=== PATIENT | female | born 1955 | race American Indian/Alaskan Native ===

== ENCOUNTER 2018-11-14 09:25 | Emergency (ER) | payer OTHER ==
[2018-11-14 09:33] VITALS: BP 154/85
--- NOTE | 2018-11-14 10:06 | Emergency Department Report ---
ED General Adult HPI - General Chief complaint: Headache Stated complaint: HEAD/BACK PAIN Time Seen by Provider: 11/14/18 09:44 Source: patient Mode of arrival: Ambulatory Limitations: No Limitations - History of Present Illness Initial comments: Mrs. Robbins is a healthy 63 yo female who presents with headache, upper back swelling, chest pain, nerve pain in her arms and legs Has had difficulty concentrating. Mild symptoms. Intermittent. Does not appear to be a pattern or inciting factor. 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 She has a PCP. FUll p hysical performed last summer. Has had preventive care including colonoscopy and mammogram. Mild intermittent nondescript chest pain last seconds. migrating headache, right, leg, posterior. PCP Dr. Rao -: Gradual, week(s) (1) Location: head, chest Severity scale (0 -10): 6 Consistency: intermittent Improves with: none Worsens with: none Associated Symptoms: chest pain, headaches - Related Data Home Medications Medication Instructions Recorded Confirmed Last Taken No Known Home Medications [No 07/04/14 07/04/14 Unknown Reported Home Medications] Allergies Allergy/AdvReac Type Severity Reaction Status Date / Time No Known Allergies Allergy Verified 11/14/18 09:27 ED Review of Systems ROS: Stated complaint: HEAD/BACK PAIN Other details as noted in HPI Comment: All other systems reviewed and negative Constitutional: denies: fever Respiratory: denies: cough Cardiovascular: chest pain Neurological: headache ED Past Medical Hx - Past Medical History Previous Medical History?: No - Surgical History Past Surgical History?: Yes Additional Surgical History: fibroids removed - Social History Smoking Status: Never Smoker Substance Use Type: None - Medications Home Medications: Home Medications Medication Instructions Recorded Confirmed Last Taken Type No Known Home Medications [No 07/04/14 07/04/14 Unknown History Reported Home Medications] ED Physical Exam - General Limitations: No Limitations General appearance: alert, in no apparent distress - Head Head exam: Present: atraumatic, normocephalic - Eye Eye exam: Present: normal appearance - ENT ENT exam: Present: mucous membranes moist - Neck Neck exam: Present: normal inspection - Respiratory Respiratory exam: Present: normal lung sounds bilaterally. Absent: respiratory distress, wheezes, rales, rhonchi - Cardiovascular Cardiovascular Exam: Present: regular rate, normal rhythm, normal heart sounds. Absent: systolic murmur, diastolic murmur, rubs, gallop - GI/Abdominal GI/Abdominal exam: Present: soft, normal bowel sounds. Absent: distended, tenderness, guarding, rebound - Extremities Exam Extremities exam: Present: normal inspection - Back Exam Back exam: Present: normal inspection - Neurological Exam Neurological exam: Present: alert, oriented X3 - Psychiatric Psychiatric exam: Present: normal affect, normal mood - Skin Skin exam: Present: warm, dry, intact, normal color, other (lipoma mid upper back just posterior to neck region). Absent: rash ED Course Vital Signs 11/14/18 09:31 Temperature 98.6 F Pulse Rate 67 Respiratory 18 Rate Blood Pressure 154/85 O2 Sat by Pulse 100 Oximetry ED Medical Decision Making - Lab Data Result diagrams: 11/14/18 10:29 11/14/18 10:26 Laboratory Results - last 24 hr 11/14/18 11/14/18 10:26 10:29 WBC 4.5 RBC 4.69 Hgb 13.2 Hct 40.1 MCV 85 MCH 28 MCHC 33 RDW 14.4 Plt Count 263 Seg Neutrophils % [employer] Sodium 142 Potassium 4.1 Chloride 102.8 Carbon Dioxide 27 Anion Gap 16 BUN 10 Creatinine 0.6 L Estimated GFR > 60 BUN/Creatinine Ratio 17 Glucose 110 H Calcium 8.9 Troponin T < 0.010 - EKG Data -: EKG Interpreted by Me - EKG Data 11/14/18 11:13 EKG obtained 1048 Sinus bradycardia rate 50 beats a minute normal axis normal interval diffuse T- wave inversions - Radiology Data Radiology results: report reviewed CT head no acute process according to radiology report Chest x-ray: No acute process according to radiology report - Medical Decision Making 1. migrating headache without neurological deficit: no indication of severe headache cause such as CVA, meningitis, temporal arteritis, SAH, will need BP monitoring by PCP 2. chest pain, atypical for ACS, Heart Score 2, has been admitted by cardiology for chest pain in past, according to EMR review, no indication of ischemic heart disease, normal echo, normal V/Q scan, referred to same cardiology group for urgent f/u 3. pain upper back lipoma vs sebaceous cyst, Mrs. Robbins given verbal education With a host of concerns which do not appear related, I explained that her PCP wo uld be very helpful. However, emergency medical condition was ruled out during this encounter. Critical care attestation.: If time is entered above; I have spent that time in minutes in the direct care of this critically ill patient, excluding procedure time. ED Disposition Clinical Impression: Headache, Chest pain, Elevated blood pressure reading, Lipoma Disposition: TO HOME OR SELFCARE Is pt being admited?: No Does the pt Need Aspirin: No Condition: Stable Instructions: Chest Pain (ED), Acute Headache (ED), Lipoma (ED) Additional Instructions: Your blood pressure is 154/85. Please see your primary doctor this week. Referrals: DOMINIK RAO MD [Primary Care Provider] - [facility] SVETLANA GORMAN MD [Staff Physician] - [facility] Forms: Work/School Release Form(ED)
[2018-11-14 10:40] LABS: Hematocrit 40.1 % (30.3-42.9); Hemoglobin 13.2 gm/dl (10.1-14.3); Mean Corpuscular HGB Conc 33 % (30-34); Mean Corpuscular Volume 85 fl (79-97); Platelet Count 263 K/mm3 (140-440); Red Blood Count 4.69 M/mm3 (3.65-5.03); Red Cell Distribution Width 14.4 % (13.2-15.2)
[2018-11-14 11:01] LABS: BUN/Creatinine Ratio 17; Blood Urea Nitrogen 10 mg/dL (7-17); Calcium 8.9 mg/dL (8.4-10.2); Hemolysis Index 14
--- NOTE | 2018-11-14 11:05 | Cat Scan Report ---
PROCEDURE: CT HEAD/BRAIN WO CON TECHNIQUE: Multiple continuous axial images were obtained from the skull base to the vertex without administration of IV contrast. HISTORY: headache COMPARISONS: None. FINDINGS: There is no parenchymal hemorrhage or extra-axial fluid collection. There is no mass or mass effect. There is no acute territorial infarct. The ventricles are midline. The subarachnoid spaces and basila r cisterns are clear. There is no skull fracture. The paranasal sinuses and mastoid air cells are terrence ar. IMPRESSION: No acute intracranial abnormality. This document is electronically signed by Eugenia Lopez MD., November 14 2018 11:03:09 AM ET
--- NOTE | 2018-11-14 11:12 | XRay Report ---
EXAM: XR CHEST ROUTINE 2V HISTORY: Chest Pain TECHNIQUE: PA and lateral chest x-ray dated 11/14/2018 at 10:15 AM. COMPARISON: None available. FINDINGS: The heart size and mediastinum are within normal limits. The lung brown and costophrenic angles are clear. There is no acute parenchymal infiltrate, pleural effusion, or pneumothorax seen. The visua lized bony structures are within normal limits. IMPRESSION: 1. No evidence for acute cardiopulmonary disease seen. This document is electronically signed by Jere Arredondo MD., November 14 2018 11:10:50 AM ET
[2018-11-14 11:31] LABS: Basophils % (Manual) 0 % (0.0-1.8); Giant Platelets Few; Platelet Estimate Consistent w Auto; RBC Morphology Normal; Total Cells Counted 100
== END 2018-11-14 11:21 | disposition home or self-care (01) ==
LOC: ED 09:25
DX: G43.909 Migraine, unspecified, not intractable, without status migrainosus (principal); R07.89 Other chest pain; I10 Essential (primary) hypertension; D17.9 Benign lipomatous neoplasm, unspecified
CPT/HCPCS: 36415; 70450; 71046; 80048; 84484; 85007; 85025; 93005; 93010; 99284

== ENCOUNTER 2020-10-07 08:23 | Emergency (ER) | payer OTHER ==
[2020-10-07] MEDS ORDERED: ASPIRIN 325 MG TAB PO ONE (08:49)
--- NOTE | 2020-10-07 08:49 | Event Note ---
ED Screening Note Date of service: 10/07/20 Time: 08:45 ED Screening Note: 65 year old female presents to ED with c/o diffuse anterior chest pain. onset x 1 mth. She states its been intermittent in nature and sharp. she states pain is also in her upper back and left arm. She states she had treadmill stress test about 1 mth ago. She states she "thinks" it was abnormal. She states she is suppose to have heart cath ( but not quite sure). Her Cream Tester is Dr Clement. This initial assessment/diagnostic orders/clinical plan/treatment(s) is/are subject to change based on patients health status, clinical progression and re- assessment by fellow clinical providers in the ED. Further treatment and workup at subsequent clinical providers discretion. Patient/guardian urged not to elope from the ED as their condition may be serious if not clinically assessed and managed. Initial orders include: Chest pain order set
[2020-10-07 09:11] LABS: Basophils % (Auto) 0.2 % (0.0-1.8); Eosinophils # (Auto) 0.1 K/mm3 (0.0-0.4); Eosinophils % (Auto) 0.9 % (0.0-4.3); Hematocrit 40.6 % (30.3-42.9); Hemoglobin 13.5 gm/dl (10.1-14.3); Lymphocytes # (Auto) 2.1 K/mm3 (1.2-5.4); Lymphocytes % (Auto) 33.4 % (13.4-35.0); Mean Corpuscular HGB Conc 33 % (30-34); Mean Corpuscular Volume 86 fl (79-97); Monocytes # (Auto) 0.5 K/mm3 (0.0-0.8); Monocytes % (Auto) 7.1 % (0.0-7.3); Platelet Count 263 K/mm3 (140-440); Red Blood Count 4.71 M/mm3 (3.65-5.03); Red Cell Distribution Width 14.3 % (13.2-15.2)
[2020-10-07 09:35] LABS: Alanine Aminotransferase 10 units/L (7-56); Albumin 4.4 g/dL (3.9-5); BUN/Creatinine Ratio 13; Blood Urea Nitrogen 9 mg/dL (7-17); Calcium 9.5 mg/dL (8.4-10.2); Hemolysis Index 17
--- NOTE | 2020-10-07 10:17 | Emergency Department Report ---
ED Chest Pain HPI - General Chief Complaint: Chest Pain Stated Complaint: CHEST FEELS HEAVY Time Seen by Provider: 10/07/20 10:02 Source: patient Mode of arrival: Ambulatory Limitations: No Limitations - History of Present Illness Initial Comments: This is a 65-year-old female who presents to the emergency department with a complaint of a 1 month history of intermittent left-sided chest and shoulder pains. At the time of my examination the patient is asymptomatic. She says that the pain will come on sometimes when she is laying flat or laying on her left side, and sometimes with exertion. She denies any shortness of breath, back pain, nausea, vomiting or diaphoresis. She has not taken anything for her symptoms prior to presentation. She denies any past medical history. She denies any tobacco or illicit drug use. No recent travel or sick contacts at home. She denies any family history of early heart attack or cardiac disease. She has a primary care physician, Dr. Dominik Wall, and follows with a flat cutter in [place]. - Related Data Home Medications Medication Instructions Recorded Confirmed Last Taken No Known Home Medications [No 07/04/14 07/04/14 Unknown Reported Home Medications] Allergies Allergy/AdvReac Type Severity Reaction Status Date / Time No Known Allergies Allergy Verified 10/07/20 08:24 Heart Score - HEART Score History: Slightly suspicious EKG: Non-specific Age: 45-65 Risk factors: No known risk factors Troponin: < normal limit HEART Score: 2 - Critical Actions Critical Actions: 0-3 pts:0.9-1.7%risk of adverse cardiac event.Candidate for discharge ED Review of Systems ROS: Stated complaint: CHEST FEELS HEAVY Other details as noted in HPI Comment: All other systems reviewed and negative Constitutional: denies: chills, fever Eyes: denies: eye pain, vision change ENT: denies: ear pain, throat pain Respiratory: denies: cough, shortness of breath Cardiovascular: chest pain. denies: palpitations Gastrointestinal: denies: abdominal pain, vomiting Genitourinary: denies: dysuria, discharge Musculoskeletal: arthralgia. denies: back pain Skin: denies: rash, lesions Neurological: denies: headache, weakness ED Past Medical Hx - Past Medical History Previous Medical History?: No - Surgical History Additional Surgical History: fibroids removed - Social History Smoking Status: Never Smoker Substance Use Type: None - Medications Home Medications: Home Medications Medication Instructions Recorded Confirmed Last Taken Type No Known Home Medications [No 07/04/14 07/04/14 Unknown History Reported Home Medications] ED Physical Exam - General Limitations: No Limitations - Other Other exam information: GENERAL: The patient is well-developed well-nourished. HENT: Normocephalic. Atraumatic. Patient has moist mucous membranes. EYES: Extraocular motions are intact. NECK: Supple. Trachea is midline. CHEST/LUNGS: Clear to auscultation. There is no respiratory distress noted. HEART/CARDIOVASCULAR: Regular. There is no tachycardia. There is no murmur. ABDOMEN: Abdomen is soft, nontender. Patient has normal bowel sounds. SKIN: Skin is warm and dry. NEURO: The patient is awake, alert, and oriented. The patient is cooperative. Normal speech. MUSCULOSKELETAL: There is no tenderness or deformity. There is no limitation range of motion. ED Course Vital Signs 10/07/20 10/07/20 10/07/20 08:24 09:22 09:31 Temperature 98.3 F Pulse Rate 84 72 82 Respiratory 20 22 19 Rate Blood Pressure 153/82 141/74 O2 Sat by Pulse 98 Oximetry 10/07/20 10/07/20 10/07/20 10:00 10:01 10:31 Temperature Pulse Rate 63 60 Respiratory 19 20 Rate Blood Pressure 137/72 128/69 O2 Sat by Pulse 99 Oximetry 10/07/20 10/07/20 10/07/20 11:01 11:15 11:31 Temperature Pulse Rate 57 L 59 L Respiratory 13 17 Rate Blood Pressure 131/71 129/64 O2 Sat by Pulse 97 98 Oximetry 10/07/20 12:01 Temperature Pulse Rate 58 L Respiratory 23 Rate Blood Pressure 141/74 O2 Sat by Pulse 98 Oximetry MILENA score - Milena Score Age > 65: (0) No Aspirin use within the Past 7 Days: (0) No 3 or more CAD Risk Factors: (0) No 2 or more Angina events in past 24 hrs: (1) Yes Known CAD with more than 50% Stenosis: (0) No Elevated Cardiac Markers: (0) No ST Deviation Greater than 0.5mm: (0) No MILENA Score: 1 ED Medical Decision Making - Lab Data Result diagrams: 10/07/20 08:51 10/07/20 08:51 - EKG Data -: EKG Interpreted by Me EKG shows normal: sinus rhythm, axis, intervals, QRS complexes, ST-T waves (Nonspecific and/or inverted lateral T waves.) Rate: normal - EKG Data When compared to previous EKG there are: no significant change Interpretation: unchanged when compared t (07/04/14) - Radiology Data Radiology results: image reviewed interpreted by me: Chest x-ray does not show any acute process. There are no pleural effusions, obvious pneumonia and there is no pneumothorax. No significant cardiomegaly. - Medical Decision Making This patient presents to the emergency department with a 1 month history of intermittent left-sided chest pain and left shoulder pain. At the time my examination the patient is asymptomatic. EKG did not have any morphology consistent with ST elevation myocardial infarction or any arrhythmia. Chest x- ray does not show any pneumonia, pleural effusions, pneumothorax, or any other acute process. The patient's labs have been unremarkable including CBC, metabolic panel and negative troponins x2. Patient is low on the heart and MILENA score. The patient does not have any risk factors for thromboembolic disease including any recent immobility, surgery, injury. She does not have any complaints of lower extremity swelling or shortness of breath. Her vital signs have been reassuring throughout ED course thus far. For all these reasons patient appears safe for discharge home at this time. She has good outpatient follow-up with primary care and cardiology. She has been instructed to follow-up with both in the next few days and to return to the emergency department with any worsening of her symptoms or with any acute distress. Critical Care Time: No Critical care attestation.: If time is entered above; I have spent that time in minutes in the direct care of this critically ill patient, excluding procedure time. ED Disposition Clinical Impression: Intermittent chest pain Disposition: DC-01 TO HOME OR SELFCARE Is pt being admited?: No Condition: Stable Instructions: Nonspecific Chest Pain, Adult, Chest Pain (ED) Additional Instructions: Please follow-up with your primary care physician and flat cutter in the next few days. Return to the emergency department with any worsening of your symptoms, return of your chest pain, development of shortness of breath, new or concerning symptoms not addressed during this current emergency department visit, or with any acute distress. Referrals: DOMINIK RODRIGUEZ MD [Primary Care Provider] - 2-3 Days Network Engineer Administrator, Your [Other] - 2-3 Days Time of Disposition: 12:04
[2020-10-07 10:31] LABS: Partial Thromboplastin Time 29.1 Sec. (24.2-36.6)
--- NOTE | 2020-10-07 11:08 | XRay Report ---
CHEST 1 VIEW INDICATION: Chest Pain. COMPARISON: 11/14/2018 FINDINGS: SUPPORT DEVICES: None. HEART: Within normal limits. LUNGS/PLEURA: No acute air space or interstitial disease. ADDITIONAL FINDINGS: None. IMPRESSION: 1. No acute findings. Signer Name: William Piña MD Signed: 10/07/2020 11:03 AM Workstation Name: [email or web address]
[2020-10-07 11:28] LABS: Bilirubin,Urine NEG (Negative); Blood,Urine NEG (Negative); Color,Urine Straw (Yellow); Mucus,Urine FEW /HPF; Protein,Urine <15 mg/dL mg/dL (Negative); Urobilinogen,Urine < 2.0 mg/dL (<2.0); WBC,Urine < 1.0 /HPF (0.0-6.0)
[2020-10-07 12:11] VITALS: BP 141/74
== END 2020-10-07 12:12 | disposition home or self-care (01) ==
LOC: ED 08:23
DX: R07.89 Other chest pain (principal); M25.512 Pain in left shoulder
CPT/HCPCS: 36415; 71045; 80053; 81001; 83690; 83880; 84484; 85025; 85610; 85730; 93005

== ENCOUNTER 2022-01-30 09:26 | Emergency (ER) | payer SELFPAY ==
[2022-01-30 09:44] VITALS: BP 125/74
[2022-01-30] MEDS ORDERED: ALUM-MAG HYDROXIDE-SIMETHICONE 200-200-20MG/5ML ORAL LIQD 30 ML PO ONE (12:51)
[2022-01-30] MEDS ORDERED: DICYCLOMINE 10 MG/5 ML ORAL LIQD PO ONE (12:52)
[2022-01-30] MEDS ORDERED: KETOROLAC 10 MG TAB PO ONE (12:52)
[2022-01-30] MEDS ORDERED: LIDOCAINE VISCOUS 2% 15 ML ORAL LIQD PO ONE (12:52)
[2022-01-30] MEDS ORDERED: CYCLOBENZAPRINE 10 MG TAB PO ONE (12:52)
--- NOTE | 2022-01-30 14:18 | Emergency Department Report ---
ED Neck Pain/Injury HPI - General Chief Complaint: Sore Throat Stated Complaint: NECK Time Seen by Provider: 01/30/22 11:44 Mode of arrival: Ambulatory Limitations: No Limitations - History of Present Illness Initial Comments: 66-year-old black female with a past medical history of hypertension presents to the emergency department for evaluation of 2-month history of neck pain. She states that when she wakes up in the morning time, her neck is stiff and hard to move. She states that sometimes it gets better during the day but over the past few days it has been painful and stiff most of the day unrelieved by Tylenol. She also complains of reflux symptoms over the last 6 months. She states that she was diagnosed with GERD but has not taken any medications for it. She denies chest pain, shortness of breath, nausea, vomiting, dizziness, and diaphoresis. MD Complaint: neck pain -: Gradual, month(s) (2) Place: home Severity: moderate Severity scale (0 -10): 6 Quality: aching Consistency: intermittent Worsens With: movement of neck Associated Symptoms: denies: headache, fever, numbness, tingling, weakness, vertigo, difficulty walking, swollen glands, difficulty swallowing, nausea, vomiting Treatments Prior to Arrival: Acetaminophen - Related Data Previous Rx's Medication Instructions Recorded Last Taken Type Cyclobenzaprine [Flexeril] 10 mg PO TID PRN #30 tab 01/30/22 Unknown Rx Naproxen [Naprosyn] 500 mg PO BID 7 Days #14 tab 01/30/22 Unknown Rx Pantoprazole [Protonix] 40 mg PO QDAY #30 tablet 01/30/22 Unknown Rx Allergies Allergy/AdvReac Type Severity Reaction Status Date / Time No Known Allergies Allergy Verified 10/07/20 08:24 ED Review of Systems ROS: Stated complaint: NECK Other details as noted in HPI Comment: All other systems reviewed and negative Constitutional: denies: chills, fever Eyes: denies: eye pain, eye discharge, vision change ENT: denies: ear pain, throat pain, dental pain, congestion Respiratory: denies: cough, shortness of breath, SOB with exertion, SOB at rest, stridor, wheezing Cardiovascular: denies: chest pain, palpitations Gastrointestinal: denies: abdominal pain, nausea, vomiting, diarrhea, constipation, hematemesis, melena, hematochezia Genitourinary: denies: urgency, dysuria, frequency, hematuria, discharge Musculoskeletal: denies: back pain Skin: denies: rash, lesions Neurological: denies: headache, weakness Psychiatric: denies: anxiety, depression ED Past Medical Hx - Surgical History Additional Surgical History: fibroids removed - Social History Smoking Status: Never Smoker Substance Use Type: None - Medications Home Medications: Home Medications Medication Instructions Recorded Confirmed Last Taken Type Cyclobenzaprine [Flexeril] 10 mg PO TID PRN #30 tab 01/30/22 Unknown Rx Naproxen [Naprosyn] 500 mg PO BID 7 Days #14 tab 01/30/22 Unknown Rx Pantoprazole [Protonix] 40 mg PO QDAY #30 tablet 01/30/22 Unknown Rx ED Physical Exam - General Limitations: No Limitations General appearance: alert, in no apparent distress - Head Head exam: Present: atraumatic, normocephalic - Eye Eye exam: Present: normal appearance. Absent: scleral icterus, conjunctival i njection, periorbital swelling, periorbital tenderness - ENT ENT exam: Present: normal exam, normal orophraynx - Neck Neck exam: Present: normal inspection, tenderness (Bilateral sides, no midline vertebral tenderness noted). Absent: full ROM, lymphadenopathy, thyromegaly - Respiratory Respiratory exam: Present: normal lung sounds bilaterally. Absent: respiratory distress, wheezes, rales, rhonchi, stridor, chest wall tenderness - Cardiovascular Cardiovascular Exam: Present: regular rate, normal heart sounds - GI/Abdominal GI/Abdominal exam: Present: soft, normal bowel sounds. Absent: distended, tenderness, guarding, rebound, rigid - Extremities Exam Extremities exam: Present: normal inspection, normal capillary refill. Absent: pedal edema, joint swelling, calf tenderness - Back Exam Back exam: Present: normal inspection. Absent: CVA tenderness (R), CVA tenderness (L), vertebral tenderness - Neurological Exam Neurological exam: Present: alert, oriented X3, CN II-XII intact, normal gait - Psychiatric Psychiatric exam: Present: normal affect, normal mood - Skin Skin exam: Present: warm, dry, intact, normal color ED Course Vital Signs 01/30/22 09:39 Temperature 97.3 F L Pulse Rate 61 Respiratory 18 Rate Blood Pressure 125/74 [Right] O2 Sat by Pulse 100 Oximetry ED Medical Decision Making - Medical Decision Making 66-year-old black female with a past medical history of hypertension presents to the emergency department for evaluation of 2-month history of neck pain. She states that when she wakes up in the morning time, her neck is stiff and hard to move. She states that sometimes it gets better during the day but over the past few days it has been painful and stiff most of the day unrelieved by Tylenol. She also complains of reflux symptoms over the last 6 months. She states that she was diagnosed with GERD but has not taken any medications for it. She denies chest pain, shortness of breath, nausea, vomiting, dizziness, and diaphoresis. Physical exam unremarkable. All symptoms resolved after medication. Patient will be discharged home with naproxen and Flexeril to use as needed for neck pain and Protonix to take for reflux type symptoms. She is advised to take medications as prescribed and follow-up with primary care provider if worsening symptoms and return to the emergency department as needed. She verbalizes understanding of and agreement with plan of care. Critical care attestation.: If time is entered above; I have spent that time in minutes in the direct care of this critically ill patient, excluding procedure time. ED Disposition Clinical Impression: Neck pain GERD (gastroesophageal reflux disease) Qualifiers: Esophagitis presence: esophagitis presence not specified Qualified Code(s): K21.9 - Gastro-esophageal reflux disease without esophagitis Disposition: 01 HOME / SELF CARE / HOMELESS Is pt being admited?: No Does the pt Need Aspirin: No Condition: Stable Instructions: Food Choices for Gastroesophageal Reflux Disease, Adult, [id number], Heartburn, [id number], Neck Exercises, Gastroesophageal Reflux Disease, Adult, [id number] Additional Instructions: Take medications as prescribed. Follow-up with primary care provider if no improvement or worsening symptoms peer return to the emergency department as needed. Prescriptions: Cyclobenzaprine [Flexeril] 10 mg PO TID PRN #30 tab PRN Reason: Muscle Spasm Naproxen [Naprosyn] 500 mg PO BID 7 Days #14 tab Pantoprazole [Protonix] 40 mg PO QDAY #30 tablet Referrals: DOMINIK RODRIGUEZ MD [Primary Care Provider] - 3-5 Days Time of Disposition: 14:18
== END 2022-01-30 14:51 | disposition home or self-care (01) ==
LOC: ED 09:26
DX: M54.2 Cervicalgia (principal); K21.9 Gastro-esophageal reflux disease without esophagitis; Z79.899 Other long term (current) drug therapy
CPT/HCPCS: 99282